=== PATIENT | female | born 1995 | race Caucasian/White ===

== ENCOUNTER 2021-04-07 04:58 | Emergency (ER) | payer OTHER ==
[~2021-04-07] VITALS: Ht 180.3 cm; Wt 46.0 kg
[2021-04-07 05:11] VITALS: BP 105/61
[2021-04-07] MEDS ORDERED: ONDANSETRON 4MG ODT PO ONE (05:45)
[2021-04-07] MEDS ORDERED: CLONAZEPAM 0.5MG TABLET PO ONE (05:45)
== END 2021-04-07 06:49 | disposition left against medical advice (07) ==
LOC: ER 04:58 → EDBD 04:58 → ER 06:49
DX: F41.0 Panic disorder [episodic paroxysmal anxiety] (principal); M54.2 Cervicalgia
CPT/HCPCS: 81025; 99283; Q0162